=== PATIENT | male | born 1950 | race Caucasian/White ===

== ENCOUNTER 2022-07-14 04:33 | Emergency (ER) | payer MEDICARE ==
[~2022-07-14] VITALS: Ht 175.3 cm; Wt 43.2 kg
[2022-07-14] MEDS ORDERED: LIDOcaine 1% W/epiNEPHrine 1:100,000 20ml vial SQ ONE (08:50)
[2022-07-14] MEDS ORDERED: LIDOCAINE 1%/EPI 1:100,000 inj. 10 ML multi-dose vial IJ ONE (08:55)
[2022-07-14 09:39] VITALS: BP 144/80
== END 2022-07-14 09:44 | disposition home or self-care (01) ==
LOC: ER 04:34
DX: S01.81XA Laceration without foreign body of other part of head, initial encounter (principal); W06.XXXA Fall from bed, initial encounter; Y93.89 Activity, other specified; Y92.89 Other specified places as the place of occurrence of the external cause; Y99.8 Other external cause status
CPT/HCPCS: 12014; 99282; J7030; A6449